=== PATIENT | female | born 1965 | race Two or more races ===

== ENCOUNTER 2019-09-11 07:34 | Outpatient (CLI) | payer OTHER | END 2019-09-11 23:59 | disposition home or self-care (01) | LOC: LAB 07:34 | PROVIDERS: ATTEND Specialist | DX: Z01.812 Encounter for preprocedural laboratory examination (principal); Z11.59 Encounter for screening for other viral diseases; M17.11 Unilateral primary osteoarthritis, right knee ==

== ENCOUNTER 2019-09-18 04:58 | Inpatient (IN) | payer OTHER ==
[~2019-09-18] VITALS: Ht 170.2 cm; Wt 109.8 kg
--- NOTE | 2019-09-18 06:00 | NUR ---
MS RN NOTE: PATIENT CAME IN FROM HOME FOR SURGERY, NO ACUTE DISTRESS NOTED. BREATHING EVEN AND UNLABORED, NO SOB NOTED. IV STARTED TO LAC #22, WITH GOOD BLOOD RETURN. CONSENTS SIGNED AND FILED IN CHART. CHECKLIST COMPLETED. MRSA SWAB COLLECTED TO RIGHT NARE. PATIENT NPO SINCE MIDNIGHT. TYPE AND SCREEN ORDERED AND AWAITING FOR LAB TO COLLECT BLOOD. 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 BED LOCKED AND IN LOWEST POSITION, CALL LIGHT IN REACH. WILL ENDORSE TO DAY NURSE TO CONTINUE WITH PLAN OF CARE.
[2019-09-18 06:29] VITALS: BP 148/74
--- NOTE | 2019-09-18 06:30 | NUR ---
MS RN NOTE: PATIENT PICKED UP FOR SURGERY. PATIENT OFF FLOOR IN STABLE CONDITION. WILL ENDORSE TO DAY NURSE TO CONTINUE WITH PLAN OF CARE.
[2019-09-18] MEDS ORDERED: BACITRACIN 50000 UNITS/VIAL ONE (06:46)
[2019-09-18] MEDS ORDERED: BUPIVACAINE 0.5 % PF 150 MG/30 ML VIAL ONE (06:46)
[2019-09-18] MEDS ORDERED: HYDROMORPHONE INJ 2 MG/ML DISP.SYRIN ONE ×2 (06:50→08:30)
[2019-09-18] MEDS ORDERED: TRANEXAMIC ACID 3,000 MG in SODIUM CHLORIDE IRRIG SOLUTION 70 ML IR ONE (08:00)
[2019-09-18] MEDS ORDERED: HYDROMORPHONE 1 MG/1 ML DISP.SYRIN IV PRN ×2 (09:00→10:00)
[2019-09-18] MEDS ORDERED: TYLENOL 650 MG TABLET PO PRN (09:00)
[2019-09-18] MEDS ORDERED: AMBIEN 5 MG TABLET PO PRN (09:00)
[2019-09-18] MEDS ORDERED: HYDROCODONE/APAP 5/325MG 1 EACH TABLET PO PRN (09:00)
[2019-09-18] MEDS ORDERED: COLACE 250 MG CAPSULE PO PRN (09:00)
[2019-09-18] MEDS ORDERED: ZOFRAN 4mg/2ML IV PRN (09:00)
[2019-09-18] MEDS ORDERED: SENOKOT 8.6 MG TABLET PO PRN (09:00)
[2019-09-18] MEDS ORDERED: DULCOLAX 10 MG/SUPP.RECT RC PRN (09:00)
--- NOTE | 2019-09-18 09:25 | NUR ---
MS RN NOTE: PATIENT CAME BACK FROM SURGERY,PT IS DROWSY BUT EASILY AROUSE DENIES PAIN AT THIS TIME NO ACUTE DISTRESS NOTED. BREATHING EVEN AND UNLABORED, NO SOB NOTED NO N/V. IV AT LAC #22, INTACT PATENT WITH ORDER FOR LR AT 100 ML /HR. POST SURGICAL ORDERS NOTED AND CARRY OUT, DRESSING AT RIGHT KNEE CDI AND ICE IN PLACE NO BLEEDING NOTED PT ABLE TO MOVE R FOOT TOES AND FEEL TOUCH SCD ON WILL COTINUE TO MONITOR. BED LOCKED AND IN LOWEST POSITION, CALL LIGHT IN REACH. WILL CONTINUE WITH PLAN OF CARE.
[2019-09-18] MEDS ORDERED: HYDROMORPHONE 1 MG/1 ML DISP.SYRIN SQ PRN (10:00)
[2019-09-18] MEDS ORDERED: HYDROCODONE/APAP 10/325MG 1 EA TABLET PO PRN (10:00)
[2019-09-18] MEDS: IV LR 1000 ML 1,000 ML IV PRN ×2 (11:45→22:28)
[2019-09-18 12:00] VITALS: BP 148/74
[2019-09-18] MEDS: ANCEF 1 GM/50 ML D5W IV SCH ×4 (15:21→22:20)
[2019-09-18 16:00] VITALS: BP 142/76
[2019-09-18] MEDS ORDERED: MAG HYDROX/AL HYDROX/SIMETH 30 ML UDC PO PRN (16:30)
[2019-09-18] MEDS ORDERED: CLONIDINE HCL 0.1 MG TABLET PO PRN (16:30)
[2019-09-18] MEDS ORDERED: diphenhydrAMINE HCL 25 MG CAPSULE PO PRN (16:30)
[2019-09-18] MEDS: DOCUSATE SODIUM 100 MG CAPSULE PO SCH (17:44)
[2019-09-18] MEDS: ASPIRIN 81 MG TAB.CHEW PO SCH (17:45)
--- NOTE | 2019-09-18 18:50 | NUR ---
MS/ RN CLOSING NOTE: PATIENT S/P SURGERY R KNEE TOTAL ARTHROPLASTY, NO ACUTE DISTRESS NOTED. BREATHING EVEN AND UNLABORED, NO SOB NOTED. IV AT LAC #22 INTACT ,PATENT, LR RUNNING AT 100 ML /HR PATIENT ON REGULAR DIET .r KNEE WITH DRESSING INTACT NO S/S OF BLEEDING NOTED,NO C/O OF PAIN ABLE TO MOVE THE TOES AND FEEL TO TOUCH CPM MACHINE ORDER ,AND INCENTIVE SPIROMETER. BED LOCKED AND IN LOWEST POSITION, CALL LIGHT IN REACH. WILL ENDORSE TO NIGHT NURSE TO CONTINUE WITH PLAN OF CARE.
--- NOTE | 2019-09-18 19:10 | NUR ---
RN OPENING NOTE RECEIVED PATIENT IN BED ALERT AND ORIENTED X 4. S/P R KNEE TOTAL ARTHROPLASTY. BREATHING EVEN AND UNLABORED, NO SOB NOTED. IV AT RIGHT AC #22 PATENT AND INTACT WITH LR RUNNING AT 100 ML /HR PATIENT ORDERED. RIGHT KNEE DRESSING INTACT NO S/S OF BLEEDING NOTED,DENIES PAIN OR DISCOMFORT, PT ABLE TO MOVE RIGHT TOES COMMANDED, NO COMPLICATIONS NOTED AT THIS TIME. BED LOCKED AND IN LOWEST POSITION, CALL LIGHT IN REACH. SAFETY MEASURES IN PLACE, WILL MONITOR PATIENT.
[2019-09-18 20:00] VITALS: BP 157/81
[2019-09-18] MEDS: FAMOTIDINE (20 MG) 20 MG TABLET PO SCH (21:36)
--- NOTE | 2019-09-19 04:36 | NUR ---
RN NOTE DR. GARCIA AT BEDSIDE PROVIDING PT EDUCATION ON USE OF INCENTIVE SPIROMETER. Addendum: 09/19/19 at 0649 by IVY RUBIN RN ERROR. DR ESCOBAR AT BEDSIDE NOT RADHA MILES.
--- NOTE | 2019-09-19 05:06 | NUR ---
RN NOTE DR. GARCIA WITH ORDER TO DISCONTINUE O2 VIA NC. ORDER NOTED AND CARRIED OUT. Addendum: 09/19/19 at 0649 by IVY RUBIN RN ERROR. DR. ESCOBAR WITH ORDER NOT DR. GARCIA.
--- NOTE | 2019-09-19 06:31 | NUR ---
RN CLOSING NOTE NO ACUTE CHANGES OVERNIGHT. PT AWAKE IN BED IN SEMI MCCAIN'S POSITION. ALERT AND ORIENTED X 4. BREATHING EVEN AND UNLABORED WHILE ON ROOM AIR. IV AT RIGHT AC #22 PATENT AND INTACT WITH LR RUNNING AT 100 ML /HR ORDERED. RIGHT KNEE DRESSING INTACT NO S/S OF BLEEDING OR COMPLICATIONS NOTED. ,DENIES PAIN OR DISCOMFORT, BED LOCKED AND IN LOWEST POSITION, CALL LIGHT WITHIN REACH. SAFETY MEASURES IN PLACE, WILL ENDORSE TO MORNING RN FOR CONTINUATION OF CARE.
[2019-09-19 08:00] VITALS: BP_SYST 128; BP_SYST 147; BP_DIAS 69; BP_DIAS 71
--- NOTE | 2019-09-19 08:00 | NUR ---
rn notes received patient in the bed a/o x4, no acute respiratory distress. patient was complaining of pain 3/10 per patient request on right knee. brace on, patient able to ambulate, going bathroom using walker, v/s stable, administered scheduled medication. call light within to reach continued monitoring.
[2019-09-19] MEDS: ASPIRIN 81 MG TAB.CHEW PO SCH (09:53)
[2019-09-19] MEDS: FAMOTIDINE (20 MG) 20 MG TABLET PO SCH (09:53)
[2019-09-19] MEDS: DOCUSATE SODIUM 100 MG CAPSULE PO SCH (09:54)
--- NOTE | 2019-09-19 10:03 | NUR ---
RN NOTES ADMINISTERED NARCO 10/325 MG PO PRN FOR RIGHT KNEE ACUTE PAIN, BURNING SENSATION PER PATIENT REQUEST, V/S TAKEN BP 140/73,P-79, R-19. SEEN PATIENT BY PT AMBULATE USING WALKER.
--- NOTE | 2019-09-19 10:06 | NUR ---
RN NOTES GET CALL FROM PAIN MANAGEMENT MD PATIENT WILL GO HOME TODAY, AFTER WALKING WITH THE PT, AND PATIENT HAS PAIN MEDICATION PRESCRIPTION.
[2019-09-19 10:18] LABS: BASOPHILS # (AUTO) 0.1 /CMM (0.0-0.2); BASOPHILS % (AUTO) 0.5 % (0.0-2.0); EOSINOPHILS % (AUTO) 0.1 % (0.0-6.0); HEMATOCRIT 38 % (33-45); HEMOGLOBIN 12.1 g/dL (11.5-14.8); LYMPHOCYTES # (AUTO) 1.4 /CMM (0.8-4.8); LYMPHOCYTES % (AUTO) 11.7 % (20.0-44.0); MEAN CORPUSCULAR HGB CONC 32 g/dl (31.0-36.0); MEAN CORPUSCULAR VOLUME 77 fL (82-100); MONOCYTES # (AUTO) 1.3 /CMM (0.1-1.30); MONOCYTES % (AUTO) 10.9 % (2.0-12.0); NEUTROPHILS # (AUTO) 8.9 /CMM (1.8-8.9); NEUTROPHILS % (AUTO) 76.8 % (43.0-81.0); PLATELET COUNT (AUTO) 348 /CMM (150-450); RED BLOOD CELL COUNT(AUTO) 4.93 MIL/uL (4.0-5.2); WHITE BLOOD COUNT (AUTO) 11.6 K/uL (4.3-11.0)
[2019-09-19 10:37] LABS: CREATININE 0.9 mg/dL (0.6-1.3); MAGNESIUM 2.1 mg/dL (1.8-2.4); POTASSIUM 3.7 mmol/L (3.5-5.1)
[2019-09-19 12:00] VITALS: BP 120/65
--- NOTE | 2019-09-19 13:30 | NUR ---
STITCH WHEELER NOTES PATIENT DISCHARGE AT THIS TIME GOING HOME SELF CARE. PATIENT STABLE, REFUSED PAIN, V/S WNL. MED RECONCILIATION AND DISCHARGE ORDER REVIEWED AND EXPLAINED TO THE PATIENT. PATIENT VERBALIZED UNDERSTANDING. BELONGING WITH THE PATIENT. WILL FOLLOW ON ONE WEEK ORTHO MD AT THIS OFFICE. PATIENT HAS PRESCRIPTION MD HANDED TO THE PATIENT. ESCORTED PATIENT TO THE LOBBY FOR SAFETY. PATIENT WIND TUNNEL MECHANIC BY DAUGHTER NAME KAYLA PHONE # [phone].
== END 2019-09-19 13:30 | disposition home or self-care (01) | DRG 470 ==
LOC: EDBD → DS 04:58 → MED 05:09
PROVIDERS: ADMIT Nurse Practitioner Acute Care; ATTEND Nurse Practitioner Acute Care
PROC: 0SRC0J9 Replacement of Right Knee Joint with Synthetic Substitute, Cemented, Open Approach (ICD-10-PCS; principal; 2019-09-18)
DX: M17.11 Unilateral primary osteoarthritis, right knee (principal); E66.01 Morbid (severe) obesity due to excess calories; Z98.890 Other specified postprocedural states; Z68.37 Body mass index [BMI] 37.0-37.9, adult; E83.39 Other disorders of phosphorus metabolism
CPT/HCPCS: 36415; 80048-TC; 83735-TC; 84100-TC; 85025-TC; 86850-TC; 87081-TC; 97116-TC; 97530-TC; A4217; C1713; C1776; G0378; J0690; J1170; J3490; J7060; J7120; L1830